=== PATIENT | male | born 1980 | race Caucasian/White ===

== ENCOUNTER 2019-03-18 08:11 | Emergency (ER) | payer BC, OTHER ==
[~2019-03-18] VITALS: Ht 180.3 cm; Wt 82.1 kg
--- NOTE | 2019-03-18 08:41 | NUR ---
SCIENTIST IMMUNOLOGY: PT TO ROOM FROM [facility]
[2019-03-18 09:09] LABS: CULTURE INDICATED? YES; MICROSCOPIC INDICATED
[2019-03-18 09:14] LABS: BASOPHILS # (AUTO) 0.03 x10^3/uL (0-0.1); BASOPHILS % (AUTO) 0 % (0-1); EOSINOPHILS # (AUTO) 0.01 x10^3/uL (0-0.4); EOSINOPHILS % (AUTO) 0 % (1-7); LYMPHOCYTES # (AUTO) 1.62 x10^3/uL (1-3.4); LYMPHOCYTES % (AUTO) 18 % (22-44); MD NO; MEAN CORPUSCULAR HEMOGLOBIN 31.4 pg (27.5-34.5); MEAN CORPUSCULAR HGB CONC 34.4 g/dL (33.2-36.2); MEAN CORPUSCULAR VOLUME 91.5 fL (81-97); MEAN PLATELET VOLUME 7.6 fL (7.4-10.4); MONOCYTES # (AUTO) 0.28 x10^3/uL (0.2-0.8); MONOCYTES % (AUTO) 3 % (2-9); NEUTROPHILS # (AUTO) 7.23 x10^3/uL (1.8-6.8); NEUTROPHILS % (AUTO) 79 % (42-75); PLATELET COUNT 221 x10^3/uL (130-400); RED BLOOD COUNT 5.05 x10^6/uL (4.38-5.82); RED CELL DISTRIBUTION WIDTH 12.7 % (9.4-14.8)
[2019-03-18 09:17] LABS: ALANINE AMINOTRANSFERASE 77 U/L (12-78); ALBUMIN 3.7 g/dL (3.4-5.0); ANION GAP 12 mmol/L (5-15); CALCIUM 8.7 mg/dL (8.5-10.1); CHLORIDE 98 mmol/L (98-107)
[2019-03-18 09:19] LABS: ALKALINE PHOSPHATASE 84 U/L (45-117); TOTAL PROTEIN 7.8 g/dL (6.4-8.2)
[2019-03-18] MEDS ORDERED: FAMOTIDINE 20 MG/2 ML IVPush ONE (09:30)
[2019-03-18] MEDS ORDERED: ONDANSETRON 2MG/ML, 2ML IVPush ONE (09:30)
[2019-03-18] MEDS ORDERED: MAALOX/HYOSCYAMINE/LIDOCAINE 45 ML BTL PO ONE (09:30)
--- NOTE | 2019-03-18 09:40 | NUR ---
ULTRASOUND AT BEDSIDE
[2019-03-18] MEDS ORDERED: ONDANSETRON ODT 4 MG ONE (10:02)
[2019-03-18] MEDS ORDERED: MAALOX/HYOSCYAMINE/LIDOCAINE 45 ML BTL ONE (10:02)
[2019-03-18] MEDS ORDERED: FAMOTIDINE 20 MG TABLET ONE (10:02)
[2019-03-18] MEDS ORDERED: ONDANSETRON ODT 4 MG PO ONE (10:30)
[2019-03-18 10:40] VITALS: BP 134/72
--- NOTE | 2019-03-18 11:15 | NUR ---
PAIN IMPROVED SINCE MEDICATED. D/C GIVEN. AMBULATED TO DISCHARGE WINDOW WITHOUT ASSISTANCE. PT STATES HE IS CALLING A TAXI
== END 2019-03-18 11:33 ==
LOC: ED 11:20
DX: K29.20 Alcoholic gastritis without bleeding (principal); F10.120 Alcohol abuse with intoxication, uncomplicated; R11.0 Nausea; Y90.9 Presence of alcohol in blood, level not specified
CPT/HCPCS: 36415; 76700; 80053; 80307; 81001; 83690; 85025; 87086; 93005; 96374; 99284; J3490; Q0162

== ENCOUNTER 2019-08-08 11:02 | Emergency (ER) | payer BC ==
[~2019-08-08] VITALS: Ht 180.3 cm; Wt 84.2 kg
--- NOTE | 2019-08-08 11:20 | NUR ---
BIB BY [facility] FOR LEFT RIB PAIN AFTER FALL 2 DAYS AGO. BRUSING TO LEFT LATERAL CHEST NOTED LUNGS SOUND TO BASES CLEAR BILATERALLY POX 98%, DENIES SOB RATES PAIN AT 11/22-RECEIVED SOME IBPROFEN FROM [facility] EN ROUTE
[2019-08-08] MEDS ORDERED: HYDROcodone/APAP 5/325 TABLET ONE (11:38)
--- NOTE | 2019-08-08 11:45 | NUR ---
MEDICATED PER [facility] FOR PAIN AT 10 UPDATED ON ESTIMATED POC
--- NOTE | 2019-08-08 11:56 | NUR ---
TO RADIOLOGY FOR CXR
[2019-08-08] MEDS ORDERED: HYDROcodone/APAP 5/325 TABLET PO ONE (12:00)
--- NOTE | 2019-08-08 13:00 | NUR ---
PROVIDED WITH INCENTIVE SPIROMETER-ABLE TO ACHIEVE GOAL OF 3250 X 10 REPORTS PAIN IMPROVED TO 5/10 VSS
[2019-08-08 13:01] VITALS: BP 142/79
== END 2019-08-08 13:13 | disposition home or self-care (01) ==
LOC: ED 13:02
DX: S22.42XA Multiple fractures of ribs, left side, initial encounter for closed fracture (principal); W01.0XXA Fall on same level from slipping, tripping and stumbling without subsequent striking against object, initial encounter; Y93.89 Activity, other specified; Y92.89 Other specified places as the place of occurrence of the external cause; Y99.8 Other external cause status
CPT/HCPCS: 99283